=== PATIENT | female | born 1965 | race African-American/Black ===

== ENCOUNTER 2017-03-18 14:46 | Outpatient (CLI) | payer OTHER ==
--- NOTE | 2017-03-19 08:46 | Mammography Report ---
BILATERAL DIGITAL SCREENING MAMMOGRAM with CAD : 03/18/17 14:46:00 CLINICAL: Routine screening. COMPARISON:03/15/16 and earlier [facility] mammograms including 06/07/15 FINDINGS: The breasts are heterogeneously dense, which may obscure small masses. No mass, architectural distortion or suspicious calcifications. An upper outer right intra-parenchyma lymph node is unchanged compared to prior exams. Right benign calcifications. IMPRESSION: No mammographic evidence of malignancy. BI-RADS CATEGORY: 2 -- Benign RECOMMENDATION: Routine mammographic screening in one year. COMMENT: Patient follow-up letters are generated by our [employer] application.
== END 2017-03-18 14:47 | disposition home or self-care (01) ==
LOC: MAMMO 14:46
PROVIDERS: ATTEND Internal Medicine
DX: Z12.31 Encounter for screening mammogram for malignant neoplasm of breast (principal)
CPT/HCPCS: 77067; G0202